=== PATIENT | male | born 1965 | race Hispanic/Latino ===

== ENCOUNTER 2021-09-25 15:48 | Inpatient (IN) | payer BC ==
[2021-09-25] MEDS ORDERED: Ondansetron PF 4 MG/2 ML Vial ONE (16:31)
[2021-09-25] MEDS ORDERED: Morphine 4 MG/ML VIAL ONE ×2 (16:31→17:20)
[2021-09-25 17:11] LABS: #Basophils 0.1 10x3/uL (0.0-0.2); #Eosinphils 0.2 10x3/uL (0.0-0.5); #Monocytes 0.4 10x3/uL (0.0-1.1); #Neutrophils 4.6 10x3/uL (1.5-8.4); %Basophils 1.5 % (0.0-2.0); %Eosinophils 2.8 % (0.0-6.0); %Lymphocytes 13.8 % (18.0-47.0); %Monocytes 6.7 % (0.0-10.0); %Neutrophils 74.7 % (40.0-75.0); Hemoglobin 16.2 g/dL (13.5-17.5); Mean Corpuscular Hemoglobin 29.3 pg (27.0-33.0); Mean Corpuscular Volume 86.1 fl (81.2-95.1); Mean Platelet Volume 10.5 fl (7.4-10.4); Platelet Count 188 10x3/uL (150-450); RBC Distribution Width 13.5 % (11.5-14.5); Red Blood Cell (RBC) Count 5.53 10x6/uL (4.32-5.72); White Blood Cell (WBC) Count 6.2 10x3/uL (3.5-10.5)
[2021-09-25] MEDS ORDERED: Famotidine/PF 20 mg/2ml Vial ONE (17:20)
[2021-09-25 17:21] LABS: ALT (SGPT) 511 U/L (8-55); AST (SGOT) 262 U/L (5-34); Alkaline Phosphatase 324 U/L (40-110); Anion Gap 16 mmol/L (10-20); BUN (Urea Nitrogen) 13 mg/dL (8.4-25.7); Bilirubin, Total 3.1 mg/dL (0.2-1.2); Calc. Creatinine Clearance 0 mL/min (70-130); Calcium 8.4 mg/dL (7.8-10.44); Carbon Dioxide 20 mmol/L (22-29); Chloride 102 mmol/L (98-107); Globulin 2.7 g/dL (2.4-3.5); Glucose 368 mg/dL (70-105); Lipase 79 U/L (8-78); Potassium 4.2 mmol/L (3.5-5.1); Protein, Total 6.7 g/dL (6.0-8.3); Sodium 134 mmol/L (136-145)
[2021-09-25 18:33] LABS: Bilirubin Neg (Negative); Blood, Urine Negative (Negative); Clarity Clear (Clear); Glucose, Urine (Dipstick) >=1000 mg/dL (Negative); Ketone, Urine Negative (Negative); Leukocyte Negative (Negative); Nitrite Negative (Negative); Protein, Urine (Dipstick) 15 mg/dl (Neg-Trace)
[2021-09-25] MEDS ORDERED: Piperacillin/Tazobactam 4.5 GM VIAL ONE (19:03)
[2021-09-25] MEDS ORDERED: Sodium Chloride 0.9% 1,000 ML IV SCH (21:15)
[2021-09-25] MEDS ORDERED: Dextrose 5% in Water 1,000 ML IV PRN (21:22)
[2021-09-25] MEDS ORDERED: Dextrose 50% Abboject 50 ML SYRINGE SLOW IVP PRN (21:22)
[2021-09-25 21:39] VITALS: BMI 42.4
[2021-09-25] MEDS ORDERED: Lantus 1000 UNITS/10 ML VIAL SC SCH (22:00)
[2021-09-25 22:19] LABS: Magnesium 1.9 mg/dL (1.6-2.6)
[2021-09-25] MEDS: Metoprolol Tartrate 5 MG/5 ML VIAL IVP SCH (22:32)
[2021-09-25] MEDS: NS 0.9% w/ 20 MEQ KCL 1,000 ML/1,000 ML BAG IV SCH (22:37)
[2021-09-25] MEDS: Morphine 4 MG/ML VIAL SLOW IVP PRN (23:16)
[2021-09-26] MEDS: NS 0.9% w/ 20 MEQ KCL 1,000 ML/1,000 ML BAG IV SCH ×2 (04:10→08:58)
[2021-09-26 04:30] LABS: #Basophils 0.1 10x3/uL (0.0-0.2); #Eosinphils 0.1 10x3/uL (0.0-0.5); #Monocytes 0.4 10x3/uL (0.0-1.1); #Neutrophils 3.5 10x3/uL (1.5-8.4); %Basophils 1.6 % (0.0-2.0); %Eosinophils 2.4 % (0.0-6.0); %Lymphocytes 17.4 % (18.0-47.0); %Neutrophils 70.2 % (40.0-75.0); Hemoglobin 14.5 g/dL (13.5-17.5); Mean Corpuscular HGB CONC 33.9 g/dL (32.0-36.0); Mean Corpuscular Hemoglobin 29.8 pg (27.0-33.0); Mean Corpuscular Volume 88.1 fl (81.2-95.1); Platelet Count 159 10x3/uL (150-450); RBC Distribution Width 13.9 % (11.5-14.5); Red Blood Cell (RBC) Count 4.86 10x6/uL (4.32-5.72)
[2021-09-26 04:51] LABS: ALT (SGPT) 390 U/L (8-55); AST (SGOT) 176 U/L (5-34); Albumin 3.3 g/dL (3.5-5.0); Alkaline Phosphatase 282 U/L (40-110); Anion Gap 13 mmol/L (10-20); BUN (Urea Nitrogen) 9 mg/dL (8.4-25.7); Bilirubin, Total 3.6 mg/dL (0.2-1.2); Calc. Creatinine Clearance 178 mL/min (70-130); Calcium 8.1 mg/dL (7.8-10.44); Carbon Dioxide 20 mmol/L (22-29); Chloride 109 mmol/L (98-107); Globulin 2.4 g/dL (2.4-3.5); Glucose 195 mg/dL (70-105); Lipase 68 U/L (8-78); Protein, Total 5.7 g/dL (6.0-8.3); Sodium 138 mmol/L (136-145)
[2021-09-26] MEDS: Metoprolol Tartrate 5 MG/5 ML VIAL IVP SCH ×3 (06:20→23:13)
[2021-09-26] MEDS: Cholecalciferol 1,000 UNITS (25 MCG) TAB PO SCH (08:55)
[2021-09-26] MEDS: Ubidecarenone 50 MG CAP PO SCH (08:55)
[2021-09-26] MEDS: Enoxaparin Sodium 40 MG/0.4 ML SYRINGE SC SCH (08:56)
[2021-09-26] MEDS ORDERED: Lantus 1000 UNITS/10 ML VIAL SC SCH ×2 (09:00→21:00)
[2021-09-26] MEDS: HumaLOG 300 UNITS/3 ML VIAL SC PRN (17:07)
[2021-09-26] MEDS: Rosuvastatin 10 MG TAB PO SCH (21:27)
[2021-09-26] MEDS: Ezetimibe 10 MG TAB PO SCH (21:27)
[2021-09-27 04:09] LABS: #Basophils 0.1 10x3/uL (0.0-0.2); #Eosinphils 0.1 10x3/uL (0.0-0.5); #Monocytes 0.3 10x3/uL (0.0-1.1); #Neutrophils 4.1 10x3/uL (1.5-8.4); %Basophils 0.9 % (0.0-2.0); %Eosinophils 2.2 % (0.0-6.0); %Lymphocytes 16.4 % (18.0-47.0); Hemoglobin 14.6 g/dL (13.5-17.5); Mean Corpuscular HGB CONC 33.9 g/dL (32.0-36.0); Mean Corpuscular Hemoglobin 29.3 pg (27.0-33.0); Mean Corpuscular Volume 86.5 fl (81.2-95.1); Mean Platelet Volume 10.1 fl (7.4-10.4); Platelet Count 168 10x3/uL (150-450); RBC Distribution Width 13.6 % (11.5-14.5); Red Blood Cell (RBC) Count 4.98 10x6/uL (4.32-5.72); White Blood Cell (WBC) Count 5.5 10x3/uL (3.5-10.5)
[2021-09-27 04:26] LABS: ALT (SGPT) 308 U/L (8-55); AST (SGOT) 102 U/L (5-34); Albumin 3.5 g/dL (3.5-5.0); Alkaline Phosphatase 310 U/L (40-110); Anion Gap 14 mmol/L (10-20); BUN (Urea Nitrogen) 7 mg/dL (8.4-25.7); Bilirubin, Total 2.4 mg/dL (0.2-1.2); Calc. Creatinine Clearance 191 mL/min (70-130); Calcium 8.6 mg/dL (7.8-10.44); Carbon Dioxide 21 mmol/L (22-29); Chloride 102 mmol/L (98-107); Globulin 2.5 g/dL (2.4-3.5); Glucose 117 mg/dL (70-105); Potassium 3.7 mmol/L (3.5-5.1); Sodium 133 mmol/L (136-145)
[2021-09-27] MEDS: Ondansetron PF 4 MG/2 ML Vial IVP PRN (05:26)
[2021-09-27] MEDS: Metoprolol Tartrate 5 MG/5 ML VIAL IVP SCH ×3 (05:27→21:39)
[2021-09-27] MEDS: Ubidecarenone 50 MG CAP PO SCH (10:26)
[2021-09-27] MEDS: Cholecalciferol 1,000 UNITS (25 MCG) TAB PO SCH (10:26)
[2021-09-27] MEDS: Enoxaparin Sodium 40 MG/0.4 ML SYRINGE SC SCH (10:26)
[2021-09-27 10:45] LABS: SARS-CoV-2 NAA Rapid Test Not Detected (NotDetected)
[2021-09-27] MEDS ORDERED: Iopamidol 30 ML ONE (12:04)
[2021-09-27] MEDS ORDERED: Indomethacin 50 MG SUPP ONE (12:05)
[2021-09-27] MEDS ORDERED: Fentanyl 100 MCG/2 ML VIAL ONE (12:50)
[2021-09-27] MEDS ORDERED: Ondansetron PF 4 MG/2 ML Vial ONE (12:50)
[2021-09-27] MEDS ORDERED: Rocuronium Bromide 10 MG/ML (10ML VIAL) ONE (12:50)
[2021-09-27] MEDS ORDERED: Glycopyrrolate 0.2 MG/ML 5 ML SYRINGE ONE (12:50)
[2021-09-27] MEDS ORDERED: PROPOFOL 20 ML ONE (12:50)
[2021-09-27] MEDS ORDERED: Dexamethasone 4 mg/ml Vial ONE (12:50)
[2021-09-27] MEDS ORDERED: Midazolam HCl 2 mg/2 ml Vial ONE (12:50)
[2021-09-27] MEDS ORDERED: Succinylcholine 200 MG/10 ml SYRINGE FS ONE (12:51)
[2021-09-27] MEDS ORDERED: Lidocaine 2% MPF 10 ML AMP (For Epidural Use) ONE (12:51)
[2021-09-27] MEDS ORDERED: Levofloxacin 500 mg/D5W 100 ml Premix Bag ONE (13:27)
[2021-09-27] MEDS ORDERED: PHENYLEPHRINE-NS 100 MCG/ML 10 ML SYRINGE ONE (13:50)
[2021-09-27] MEDS: Dextrose 5 %-0.45 % NaCl 1,000 ML IV SCH (16:08)
[2021-09-27] MEDS: Lactated Ringer's 1,000 ML IV SCH (16:23)
[2021-09-27] MEDS: HumaLOG 300 UNITS/3 ML VIAL SC PRN (18:43)
[2021-09-27] MEDS: Rosuvastatin 10 MG TAB PO SCH (21:37)
[2021-09-27] MEDS: Ezetimibe 10 MG TAB PO SCH (21:37)
[2021-09-27] MEDS: Lantus 1000 UNITS/10 ML VIAL SC SCH (21:39)
[2021-09-28] MEDS: Lactated Ringer's 1,000 ML IV SCH ×2 (00:31→09:09)
[2021-09-28] MEDS: Metoprolol Tartrate 5 MG/5 ML VIAL IVP SCH ×3 (06:22→20:24)
[2021-09-28] MEDS: Ubidecarenone 50 MG CAP PO SCH (08:41)
[2021-09-28] MEDS: Cholecalciferol 1,000 UNITS (25 MCG) TAB PO SCH (08:41)
[2021-09-28] MEDS: Dextrose 5 %-0.45 % NaCl 1,000 ML IV SCH (09:11)
[2021-09-28] MEDS: Ondansetron PF 4 MG/2 ML Vial IVP PRN (09:36)
[2021-09-28] MEDS ORDERED: Bupivacaine 0.25% HCL 30 ML VIAL ONE (11:06)
[2021-09-28] MEDS ORDERED: EPINEPHrine 1 MG/ML AMP ONE (11:06)
[2021-09-28] MEDS ORDERED: Iopamidol 15 ML ONE (11:07)
[2021-09-28] MEDS ORDERED: Rocuronium Bromide 10 MG/ML (10ML VIAL) ONE (11:53)
[2021-09-28] MEDS ORDERED: PROPOFOL 20 ML ONE (11:53)
[2021-09-28] MEDS ORDERED: Dexamethasone 20 MG/5 ML VIAL ONE (11:53)
[2021-09-28] MEDS ORDERED: Lidocaine 2% PF 5 ML VIAL ONE (11:53)
[2021-09-28] MEDS ORDERED: Ondansetron PF 4 MG/2 ML Vial ONE (11:53)
[2021-09-28] MEDS ORDERED: Fentanyl 100 MCG/2 ML VIAL ONE ×3 (11:53→13:41)
[2021-09-28] MEDS ORDERED: Ketorolac Tromethamine 30 MG/ML VIAL ONE (11:53)
[2021-09-28] MEDS ORDERED: CEFAZOLIN 1 GM VIAL ONE (12:28)
[2021-09-28] MEDS ORDERED: Glycopyrrolate 0.2 MG/ML 5 ML SYRINGE ONE (13:27)
[2021-09-28] MEDS ORDERED: HYDROcodone/Acetaminophen 7.5/325 mg Tablet PO PRN (14:11)
[2021-09-28] MEDS: Morphine 4 MG/ML VIAL SLOW IVP PRN ×2 (16:24→20:23)
[2021-09-28] MEDS: HumaLOG 300 UNITS/3 ML VIAL SC PRN (18:27)
[2021-09-28] MEDS: Ezetimibe 10 MG TAB PO SCH (20:23)
[2021-09-28] MEDS: Rosuvastatin 10 MG TAB PO SCH (20:24)
[2021-09-28] MEDS: Lantus 1000 UNITS/10 ML VIAL SC SCH (20:24)
[2021-09-29] MEDS: Morphine 4 MG/ML VIAL SLOW IVP PRN (00:17)
[2021-09-29] MEDS: Lactated Ringer's 1,000 ML IV SCH ×2 (00:30→09:43)
[2021-09-29] MEDS: Metoprolol Tartrate 5 MG/5 ML VIAL IVP SCH (06:09)
[2021-09-29] MEDS: Ubidecarenone 50 MG CAP PO SCH (09:30)
[2021-09-29] MEDS: Cholecalciferol 1,000 UNITS (25 MCG) TAB PO SCH (09:31)
[2021-09-29] MEDS: HumaLOG 300 UNITS/3 ML VIAL SC PRN (12:02)
[2021-09-29 12:26] VITALS: BP 128/70; TEMP 98.4
== END 2021-09-29 13:44 | disposition home or self-care (01) | DRG 417 ==
LOC: CSHERS 15:48 → UNDOADMIN 21:02 → CSHTELE 21:02
PROVIDERS: ADMIT Family Medicine; ATTEND Family Medicine
PROC: 0FC98ZZ Extirpation of Matter from Common Bile Duct, Via Natural or Artificial Opening Endoscopic (ICD-10-PCS; 2021-09-27)
PROC: 0DB98ZX Excision of Duodenum, Via Natural or Artificial Opening Endoscopic, Diagnostic (ICD-10-PCS; 2021-09-27)
PROC: 0DB68ZX Excision of Stomach, Via Natural or Artificial Opening Endoscopic, Diagnostic (ICD-10-PCS; 2021-09-27)
PROC: 0FT44ZZ Resection of Gallbladder, Percutaneous Endoscopic Approach (ICD-10-PCS; principal; 2021-09-28)
PROC: BF131ZZ Fluoroscopy of Gallbladder and Bile Ducts using Low Osmolar Contrast (ICD-10-PCS; 2021-09-28)
DX: K80.44 Calculus of bile duct with chronic cholecystitis without obstruction (principal); K85.90 Acute pancreatitis without necrosis or infection, unspecified; Z68.41 Body mass index [BMI] 40.0-44.9, adult; Z20.822 Contact with and (suspected) exposure to COVID-19; E78.5 Hyperlipidemia, unspecified; E11.65 Type 2 diabetes mellitus with hyperglycemia; I25.10 Atherosclerotic heart disease of native coronary artery without angina pectoris; E66.01 Morbid (severe) obesity due to excess calories; K29.80 Duodenitis without bleeding; K26.9 Duodenal ulcer, unspecified as acute or chronic, without hemorrhage or perforation; N28.1 Cyst of kidney, acquired; Z88.2 Allergy status to sulfonamides; Z88.1 Allergy status to other antibiotic agents; Z79.4 Long term (current) use of insulin; Z79.899 Other long term (current) drug therapy; Z95.1 Presence of aortocoronary bypass graft; Z90.89 Acquired absence of other organs; Z79.82 Long term (current) use of aspirin
CPT/HCPCS: 36415; 36416; 47532; 71045; 74177; 74183; 74330; 76705; 80053; 80061; 81003; 83690; 83735; 84484; 85025; 88304; 88305; 88312; 88342; 93005; 96365; 96375; 96376; C1713; J0171; J0690; J1100; J1650; J1815; J1885; J1956; J2001; J2250; J2270; J2405; J2543; J2704; J3010; J3480; J7050; J7120; Q9967; S0020; S0028; U0002

== ENCOUNTER 2023-05-08 07:26 | Outpatient (CLI) | payer BC ==
[2023-05-08] MEDS ORDERED: Iopamidol 300 61% 100 ML VIAL FS ONE (13:44)
== END 2023-05-08 07:27 | disposition home or self-care (01) ==
LOC: CSHCT 07:26
PROVIDERS: ATTEND Family Medicine
DX: R91.1 Solitary pulmonary nodule (principal)
CPT/HCPCS: 71270

== ENCOUNTER 2025-07-16 08:24 | Day surgery (SDC) | payer BC ==
[2025-07-15 13:48] VITALS: BMI 45.8
[2025-07-16 09:39] LABS: Platelet Count 54 10x3/uL (150-450)
[2025-07-16 09:40] LABS: Hematocrit 38.2 % (38.8-50.0); Hemoglobin 13.2 g/dL (13.5-17.5); Mean Corpuscular Hemoglobin 29.8 pg (27.0-33.0); Mean Corpuscular Volume 86.2 fL (81.2-95.1); Red Blood Cell (RBC) Count 4.43 10x6/uL (4.32-5.72); White Blood Cell (WBC) Count 1.48 10x3/uL (3.5-10.5)
[2025-07-16] MEDS ORDERED: Bupivacaine/Epinephrine 0.25% 30 ML VIAL ONE (09:47)
[2025-07-16] MEDS ORDERED: Lidocaine 2% MPF 10 ML AMP (For Epidural Use) ONE (09:47)
[2025-07-16 09:56] LABS: Anion Gap 13 mmol/L (10-20); BUN (Urea Nitrogen) 21 mg/dL (8.4-25.7); Calc. Creatinine Clearance 148 mL/min (70-130); Calcium 9.0 mg/dL (7.8-10.44); Carbon Dioxide 26 mmol/L (22-29); Chloride 103 mmol/L (98-107); Glucose 209 mg/dL (70-105); Potassium 4.5 mmol/L (3.5-5.1); Sodium 137 mmol/L (136-145)
[2025-07-16] MEDS ORDERED: Lidocaine 1% PF 5 ML VIAL ONE ×2 (11:17)
[2025-07-16] MEDS ORDERED: PROPOFOL 20 ML ONE (11:17)
[2025-07-16] MEDS ORDERED: Rocuronium Bromide 10 MG/ML (10ML VIAL) ONE (11:17)
[2025-07-16] MEDS ORDERED: HYDROcodone/Acetaminophen 5/325 mg Tablet ONE (13:23)
== END 2025-07-16 14:30 | disposition home or self-care (01) ==
LOC: CSHSDC 08:24
PROVIDERS: ATTEND Surgery
PROC: 0JH63WZ Insertion of Totally Implantable Vascular Access Device into Chest Subcutaneous Tissue and Fascia, Percutaneous Approach (ICD-10-PCS; principal; 2025-07-16)
DX: C34.91 Malignant neoplasm of unspecified part of right bronchus or lung (principal); Z88.2 Allergy status to sulfonamides; Z88.1 Allergy status to other antibiotic agents; Z88.5 Allergy status to narcotic agent; Z88.8 Allergy status to other drugs, medicaments and biological substances; Z90.49 Acquired absence of other specified parts of digestive tract; I25.10 Atherosclerotic heart disease of native coronary artery without angina pectoris; Z95.1 Presence of aortocoronary bypass graft; E11.9 Type 2 diabetes mellitus without complications
CPT/HCPCS: 36415; 71045; 80048; 85027; C1788; J1642; J2704; J3010